=== PATIENT | female | born 1975 | race Caucasian/White ===

== ENCOUNTER → 2016-03-12 | Outpatient (CLI) | payer MEDICAID ==
[~2016-03-12] MED LIST: LEXAPRO20 M1 PO; NORCO 325 MG-51 TA1 PO; NORCO 325 MG-51 TAB PO; TYLENOL EXTRA500 M2 PO; XANAX1 M1 PO
[2016-03-12 14:00] VITALS: BP 97/66
== END ==
LOC: AMSURD 13:44
DX: R07.9 Chest pain, unspecified (principal)

== ENCOUNTER 2017-09-21 02:41 | Emergency (ER) | payer MEDICAID ==
[~2017-09-21] VITALS: Ht 175.3 cm; Wt 60.9 kg
[2017-09-21 04:13] LABS: EOS # 0.1 (0.04-0.40); EOS % 1.9 % (1.0-5.0); HEMATOCRIT 44.1 % (37.0-47.0); HEMOGLOBIN 14.4 g/dL (12.5-16.0); LYMPH# 2.9 (1.50-4.00); MEAN CELL VOLUME 93 fl (78-100); MEAN CORPUSCULAR HEMOGLOBIN 30 pg (27-31); MEAN CORPUSCULAR HGB CONC 33 g/dL (33-37); MEAN PLATELET VOLUME 9.9 fl (7.4-10.4); MONO # 0.8 (0.20-0.80); NEU # 3.5 (1.40-6.50); PLATELET COUNT 329 K/mm3 (130-400); RED BLOOD COUNT 4.75 M/mm3 (4.10-5.30); RED CELL DISTRIBUTION WIDTH 12.9 % (11.5-14.5); WHITE BLOOD COUNT 7.4 K/mm3 (4.8-10.8)
[2017-09-21 04:19] LABS: PH-URINE 6.5 (5.0 - 8.0); URINE APPEARANCE CLEAR; URINE BILIRUBIN NEGATIVE (NEGATIVE); URINE BLOOD NEGATIVE (NEGATIVE); URINE COLOR STRAW; URINE GLUCOSE NEGATIVE (NEGATIVE); URINE KETONE NEGATIVE (NEGATIVE); URINE LEUKOCYTE ESTERASE NEGATIVE (NEGATIVE); URINE NITRATE NEGATIVE (NEGATIVE); URINE PROTEIN(semi-quant) NEGATIVE (NEGATIVE); URINE UROBILINOGEN NORMAL (NORMAL); URINE WBC 0-1 /hpf (0-3)
[2017-09-21 04:26] LABS: ALBUMIN 3.7 g/dL (3.5-5.0); ALT/SGPT 56 U/L (9-52); AST-SGOT 76 U/L (14-36); BUN/CREATININE RATIO 17.8 (6.0-26.0); CALCIUM 9.2 mg/dL (8.4-10.2); CARBON DIOXIDE 31 mmol/L (22-30); GLUCOSE 98 mg/dL (65-105); POTASSIUM 4.1 mmol/L (3.6-5.0); SODIUM 139 mmol/L (137-145); TOTAL PROTEIN 6.6 g/dL (6.3-8.2)
[2017-09-21 04:31] LABS: TOTAL BILIRUBIN < 0.1 mg/dL (0.2-1.3)
[2017-09-21 04:52] VITALS: BP 111/89
== END 2017-09-21 04:52 | disposition home or self-care (01) ==
LOC: ED 02:41
PROVIDERS: Family Medicine
DX: R10.11 Right upper quadrant pain (principal); Z90.710 Acquired absence of both cervix and uterus

== ENCOUNTER 2017-12-15 15:54 | Emergency (ER) | payer MEDICAID ==
[~2017-12-15] VITALS: Wt 62.1 kg
[2017-12-15] MEDS ORDERED: DIVALPROEX SOD500 MG PO (16:02)
[2017-12-15 17:07] LABS: EOS # 0.2 (0.04-0.40); EOS % 2.3 % (1.0-5.0); HEMATOCRIT 41.2 % (37.0-47.0); HEMOGLOBIN 13.7 g/dL (12.5-16.0); MEAN CELL VOLUME 91 fl (78-100); MEAN CORPUSCULAR HEMOGLOBIN 30 pg (27-31); MEAN CORPUSCULAR HGB CONC 33 g/dL (33-37); MONO # 0.6 (0.20-0.80); NEU # 4.6 (1.40-6.50); PLATELET COUNT 405 K/mm3 (130-400); RED BLOOD COUNT 4.53 M/mm3 (4.10-5.30); RED CELL DISTRIBUTION WIDTH 14.1 % (11.5-14.5); WHITE BLOOD COUNT 8.3 K/mm3 (4.8-10.8)
[2017-12-15 19:12] VITALS: BP 90/65
== END 2017-12-15 19:24 | disposition home or self-care (01) ==
LOC: ED 15:54
PROVIDERS: Nurse Practitioner Family
DX: S70.02XA Contusion of left hip, initial encounter (principal); W03.XXXA Other fall on same level due to collision with another person, initial encounter; S72.002D Fracture of unspecified part of neck of left femur, subsequent encounter for closed fracture with routine healing; W19.XXXD Unspecified fall, subsequent encounter; Y92.009 Unspecified place in unspecified non-institutional (private) residence as the place of occurrence of the external cause; F17.210 Nicotine dependence, cigarettes, uncomplicated; Z79.899 Other long term (current) drug therapy; R56.9 Unspecified convulsions
CPT/HCPCS: J2405; J3010